=== PATIENT | male | born 1980 | race Caucasian/White ===

== ENCOUNTER 2019-09-02 10:45 | Emergency (ER) | payer OTHER ==
[2019-09-02] MEDS ORDERED: Bupivacaine 0.5% 10 ML SDV INJECT ONE (11:15)
[2019-09-02] MEDS ORDERED: ceFAZolin 1 GM in Sodium Chloride 0.9% 100 ML IV ONE (12:02)
[2019-09-02] MEDS: Sodium Chloride 0.9% 10 ML Syringe FLUSH PRN ×2 (12:14→12:30)
--- NOTE | 2019-09-02 12:35 | EDM.PDOC ---
ED HPI GENERAL MEDICAL PROBLEM - General Chief Complaint: Laceration Stated Complaint: "chopped the tip of his finger off" Time Seen by Provider: 09/02/19 11:15 Source of Information: Reports: Patient History Limitations: Reports: No Limitations - History of Present Illness INITIAL COMMENTS - FREE TEXT/NARRATIVE: Patient comes to ER with complaint of traumatic fingertip amputation secondary to getting crushed by a piece of angle iron. Was working at time. No other injuries. Tetanus updated 2-3 months ago. Right Finger-Ring Pain Score (Numeric/FACES): 10 - Related Data Allergies Allergy/AdvReac Type Severity Reaction Status Date / Time No Known Allergies Allergy Verified 09/02/19 11:00 Home Meds: Home Meds Cetirizine [ZyrTEC] 10 mg PO DAILY PRN 09/02/19 [History] Past Medical History - Past Health History Medical/Surgical History: Denies Medical/Surgical History Social & Family History - Tobacco Use Smoking Status *Q: Current Every Day Smoker Years of Tobacco use: 23 Packs/Tins Daily: 1 Used Tobacco, but Quit: No Second Hand Smoke Exposure: Yes - Caffeine Use Caffeine Use: Reports: Coffee, Energy Drinks, Soda - Alcohol Use Days Per Week of Alcohol Use: 7 Number of Drinks Per Day: 3 Total Drinks Per Week: 21 - Recreational Drug Use Recreational Drug Use: No ED ROS GENERAL - Review of Systems Review Of Systems: See Below Musculoskeletal: Reports: Other (right 4th finger pain) Skin: Reports: Wound Neurological: Reports: No Symptoms ED EXAM, SKIN/RASH Exam: See Below Exam Limited By: No Limitations General Appearance: Alert, WD/WN, No Apparent Distress Eye Exam: Bilateral Eye: EOMI, PERRL Ears: Hearing Grossly Normal Nose: No: Nasal Deformity, Nasal Swelling, Nasal Drainage Throat/Mouth: Normal Lips, Normal Voice, No Airway Compromise Head: Atraumatic, Normocephalic Neck: Supple Respiratory/Chest: No Respiratory Distress Neurological: Alert, Oriented, Normal Cognition, Normal Gait Psychiatric: Normal Affect, Normal Mood Skin: Warm, Wound/Incision (missing tip of finger right 4th digit. Base of nail and distal IP joint still present. Bleeding controlled. Rest of hand atraumatic/unremarable) ED SKIN PROCEDURES - Additional/Other Procedure(s) Other (Free Text) Procedure(s): 80/20 mix of Marcaine 0.5% and Lidocaine 1% mixed and used to inject to achieve nerve block in affected finger. Approx 3cc injected into each side of base of finger with good result. Course - Vital Signs Last Recorded V/S: Last Vital Signs Temp 36.4 C 09/02/19 10:50 Pulse 78 09/02/19 10:50 Resp 20 09/02/19 10:50 BP 116/72 09/02/19 10:50 Pulse Ox 99 09/02/19 10:50 - Orders/Labs/Meds Orders: Active Orders 24 hr Category Date Time Status Fingers Fourth Digit Rt F8 [CR] Stat Exams 09/02/19 10:46 Taken Meds: Medications Discontinued Medications Generic Name Dose Route Start Last Admin Trade Name Freq PRN Reason Stop Dose Admin Bupivacaine HCl 10 ml 09/02/19 11:15 09/02/19 11:26 Sensorcaine-Mpf 0.5% INJECT 09/02/19 11:16 10 ml ONETIME ONE Administration Lidocaine HCl 5 ml 09/02/19 11:15 09/02/19 11:26 Xylocaine-Mpf 1% INJECT 09/02/19 11:16 5 ml ONETIME ONE Administration - Re-Assessments/Exams Free Text/Narrative Re-Assessment/Exam: 09/02/19 12:41 Xray confirmed amputation of distal portion distal phalanx right 4th digit. Nerve block injected for pain control. Wound soaked in Betadine and saline. Call placed to [place] and patient discussed with , hand specialist. Arrangements made for patient to go to [place] and be seen by him in ER. Surgical options can be discussed once he is there. Tetanus UTD. IV dose Ancef given in ER prior to discharge. Tramadol PO and nicotine patch also given. Patient to drive to [facility] in [place] and present to ER. Departure - Departure Time of Disposition: 13:00 Disposition: DC/Tfer to Acute Hospital 02 Condition: Good Clinical Impression: Traumatic amputation of fingertip Qualifiers: Encounter type: initial encounter Qualified Code(s): S68.119A - Complete traumatic metacarpophalangeal amputation of unspecified finger, initial encounter - Discharge Information *PRESCRIPTION DRUG MONITORING PROGRAM REVIEWED*: Not Applicable *COPY OF PRESCRIPTION DRUG MONITORING REPORT IN PATIENT SHARATH: Not Applicable Additional Instructions: Drive directly to [facility] in [place]. Do not have any food/drink as you will go to the OR if you want to have grafting procedure performed. Further instructions/restrictions/followup per . Sepsis Event Note (ED) - Evaluation Sepsis Screening Result: No Definite Risk - Focused Exam Vital Signs: Vital Signs Temp Pulse Resp BP Pulse Ox 09/02/19 10:50 36.4 C 78 20 116/72 99 - My Orders Last 24 Hours: My Active Orders 09/02/19 10:46 Fingers Fourth Digit Rt F8 [CR] Stat - Assessment/Plan Last 24 Hours: My Active Orders 09/02/19 10:46 Fingers Fourth Digit Rt F8 [CR] Stat
[2019-09-02] MEDS ORDERED: Nicotine 21 MG/24 Hr Patch TRDERM ONE (12:38)
[2019-09-02] MEDS ORDERED: traMADol 50 MG Tab PO ONE (12:57)
== END 2019-09-02 13:30 ==
LOC: LL.ED 10:45
DX: S68.624A Partial traumatic transphalangeal amputation of right ring finger, initial encounter (principal); F17.210 Nicotine dependence, cigarettes, uncomplicated; W23.0XXA Caught, crushed, jammed, or pinched between moving objects, initial encounter
CPT/HCPCS: 64450; 73140; 96365; 99284; A9270; J0690; J2001; J3490; J7050